=== PATIENT | female | born 2000 | race Two or more races ===

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

== ENCOUNTER 2019-02-03 16:46 | Emergency (ER) | payer SELFPAY ==
[~2019-02-03] VITALS: Ht 160 cm; Wt 83.0 kg
[2019-02-03 17:07] VITALS: BP 109/73
[2019-02-03 17:52] LABS: Basophils # (auto) 0.1 uL; Eosinophils # (auto) 0.3 uL; Eosinophils % (auto) 2.5 % (0.0-7.0); Hemoglobin 12.2 g/dL (12.2-16.2); Lymphocytes # (auto) 2.6 uL; Monocytes # (auto) 0.9 uL; Nucleated Red Blood Cells % 0.1 %
[2019-02-03 17:55] LABS: Basophils % (auto) 0.9 % (0.0-2.0); Hematocrit 38.1 % (36.0-46.0); Lymphocytes % (auto) 22.7 % (10.0-50.0); Mean Corpuscular Hemoglobin 21.8 pg (28.0-32.0); Mean Corpuscular Hgb Conc. 31.9 g/dL (32.0-36.0); Mean Corpuscular Volume 68.3 fL (80.0-100.0); Neutrophils # (auto) 7.4 uL; Neutrophils % (auto) 65.9 % (37.0-80.0); Platelet Count (auto) 503 10^3/uL (140-450); Red Blood Cells 5.58 10^6/uL (4.0-5.20); White Blood Cell 11.2 10^3/uL (4.4-10.8)
[2019-02-03 18:00] LABS: Red Cell Distribution Width 21.2 % (11.8-14.3)
[2019-02-03 18:46] LABS: Albumin 3.5 g/dL (3.4-5.0); Calcium 9.2 mg/dL (8.5-10.1); Potassium 3.9 mmol/L (3.5-5.1)
[2019-02-03 18:46] LABS: Urine Bacteria NONE SEEN /hpf (None Seen); Urine Blood 2+ /uL (Negative); Urine Mucus FEW (None Seen); Urine WBC 5 /hpf (0 - 5)
[2019-02-03 18:49] LABS: BUN/Creatinine Ratio 17.6; Bilirubin, Total 0.2 mg/dL (0.2-1.0); Total Protein 7.6 g/dL (6.4-8.2)
== END 2019-02-04 01:11 | disposition left against medical advice (07) ==
LOC: ER 16:54
DX: R10.9 Unspecified abdominal pain (principal); R11.2 Nausea with vomiting, unspecified; Z53.21 Procedure and treatment not carried out due to patient leaving prior to being seen by health care provider
CPT/HCPCS: 36415; 74176; 80053; 81001; 81025; 82150; 83690; 85025

== ENCOUNTER 2019-09-26 07:44 | Emergency (ER) | payer SELFPAY ==
[~2019-09-26] VITALS: Ht 157.5 cm; Wt 81.6 kg
[2019-09-26 08:14] LABS: Basophils # (auto) 0.1 uL; Eosinophils # (auto) 0.1 uL; Hemoglobin 12.1 g/dL (12.2-16.2); Monocytes # (auto) 0.6 uL
[2019-09-26 08:16] LABS: Basophils % (auto) 1.3 % (0.0-2.0); Eosinophils % (auto) 1.3 % (0.0-7.0); Hematocrit 38.5 % (36.0-46.0); Lymphocytes # (auto) 1.3 uL; Mean Corpuscular Hemoglobin 21.3 pg (28.0-32.0); Mean Corpuscular Hgb Conc. 31.3 g/dL (32.0-36.0); Monocytes % (auto) 8.3 % (0.0-12.0); Neutrophils # (auto) 5.4 uL; Neutrophils % (auto) 72.1 % (37.0-80.0); Platelet Count (auto) 462 10^3/uL (140-450); Red Blood Cells 5.66 10^6/uL (4.0-5.20); White Blood Cell 7.5 10^3/uL (4.4-10.8)
[2019-09-26 08:17] LABS: Urine Bacteria NONE SEEN /hpf (None Seen); Urine Blood 1+ /uL (Negative); Urine Mucus FEW (None Seen); Urine Specific Gravity 1.027 (1.001-1.035); Urine WBC 22 /hpf (0 - 5)
[2019-09-26 08:20] LABS: Red Cell Distribution Width 20.4 % (11.8-14.3)
[2019-09-26 08:32] LABS: Albumin 3.7 g/dL (3.4-5.0); Calcium 8.8 mg/dL (8.5-10.1); Potassium 3.6 mmol/L (3.5-5.1)
[2019-09-26 08:35] LABS: BUN/Creatinine Ratio 16.9; Bilirubin, Total 0.3 mg/dL (0.2-1.0); Total Protein 7.7 g/dL (6.4-8.2)
[2019-09-26] MEDS ORDERED: SODIUM CHLORIDE 0.9% 1,000 ML IV ONE ×2 (08:36)
[2019-09-26] MEDS ORDERED: KETOROLAC TROMETH 30 MG/ML 1ML VIAL IV ONE (08:45)
[2019-09-26] MEDS ORDERED: IOHEXOL 300 MG/ML 100ML BOTTLE IJ ONE (09:14)
[2019-09-26 10:00] VITALS: BP 101/52
== END 2019-09-26 11:49 | disposition home or self-care (01) ==
LOC: EDBD 07:44 → ER 07:44
DX: N39.0 Urinary tract infection, site not specified (principal); N20.0 Calculus of kidney; R11.2 Nausea with vomiting, unspecified
CPT/HCPCS: 36415; 74177; 80053; 81001; 84702; 85025; 96361; 96374; 99284; J1885; J7030; Q9967

== ENCOUNTER 2025-10-25 10:01 | Emergency (ER) | payer MEDICAID ==
[~2025-10-25] VITALS: Ht 160 cm; Wt 99.5 kg
--- NOTE | 2025-10-25 10:43 | ED.PDOC ---
GI ASSESSMENT HPI Comments 25y F who presents to the ED for chief complaint of abdominal pain. Pt states she has been having R sided abdominal pain since yesterday. Pt states she had ordered pizza with her kids last night. Pt states at 0100 this AM, she woke up and went to restroom and has been having intermittent diarrhea episodes with associated nausea, vomiting and chills. Pt came to the ED, due to persistence of her pain and symptoms. Pt denies sick contact of children. Pt otherwise denies any other symptoms. Chief Complaint: Abdominal Pain Time Seen by MD: 10:42 Primary Care Provider: MJK Reviewed Notes: Medications, Allergies Allergies: Coded Allergies: NO KNOWN ALLERGIES (Unverified , 08/07/14) Information Source: Patient Mode of Arrival: Wheelchair Brought in by: self Past Medical History PAST MEDICAL HISTORY: Denies Surgical History: Denies all surgeries NC MANAGER History: No Pertinent NC MANAGER History Family History Family History: Reviewed,noncontributory to illness Social History Smoker: Non-Smoker Alcohol: Denies ETOH Use Drugs: Denies Drug Use Lives In: Home Constitutional: denies: chills, diaphoresis, fatigue, fever, malaise, sweats, weakness, others EENTM: denies: blurred vision, double vision, ear bleeding, ear discharge, ear drainage, ear pain, ear ringing, eye pain, eye redness, hearing loss, mouth pain, mouth swelling, nasal discharge, nose bleeding, nose congestion, nose pain, photophobia, tearing, throat pain, throat swelling, voice changes, others Respiratory: denies: cough, hemoptysis, orthopnea, SOB at rest, shortness of breath, SOB with excertion, stridor, wheezing, others Cardiovascular: denies: chest pain, dizzy spells, diaphoresis, Dyspnea on exertion, edema, irregular heart beat, left arm pain, lightheadedness, palpitations, PND, syncope, others Gastrointestinal: reports: abdominal pain, diarrhea, nausea, vomiting; denies: abdomen distended, blood streaked bowels, constipated, dysphagia, difficulty swallowing, hematemesis, melena, poor appetite, poor fluid intake, rectal bleeding, rectal pain, others Genitourinary: denies: abnormal vagina bleeding, burning, dyspareunia, dysuria, flank pain, frequency, hematuria, incontinence, pain, , vagina discharge, urgency, others Neurological: denies: dizziness, fainting, headache, left sided numbness, left sided weakness, numbness, paresthesia, pre-existing deficit, right sided numbness, right sided weakness, seizure, speech problems, tingling, tremors, weakness, others Musculoskeletal: denies: back pain, gout, joint pain, joint swelling, muscle pain, muscle stiffness, neck pain, others Integumetry: denies: bruises, change in color, change in hair/nails, dryness, laceration, lesions, lumps, rash, wounds, others Allergic/Immunocompromised: denies: Difficulty Healing, Frequent Infections, Hives, Itching, others Hematologic/Lymphatic: denies: anemia, blood clots, easy bleeding, easy bruising, swollen glands, others Endocrine: denies: excessive hunger, excessive sweating, excessive thirst, excessive urination, flushing, intolerance to cold, intolerance to heat, unexplained weight gain, unexplained weight loss, others Psychiatric: denies: anxiety, bipolar disorder, depression, hopeless, panic disorder, schizophrenia, sleepless, suicidal, others All Other Systems: Reviewed and Negative Was a procedure done? Was a procedure done?: No GI differential Dx Differential Diagnosis: Appendicitis, Constipation, Gastritis/PUD, Gastroenteritis, Pancreatitis, UTI, Dehydration, Food Poisoning, Stress Ulcer, Kidney Stone Other Differential Diagnosis colitis, X-Ray, Labs, Meds, VS Vital Signs Date Time Temp Pulse Resp B/P (MAP) Pulse Ox O2 Delivery O2 Flow Rate FiO2 10/25/25 11:35 87 18 124/68 10/25/25 10:59 121 24 124/62 10/25/25 10:03 97.5 119 18 142/62 98 97.5 Lab Test 10/25/25 11:28 10/25/25 10:56 Range/Units Urine Color Yellow Yellow Urine Clarity Clear Clear Urine pH 5.0 5.0-9.0 Urine Specific [place] 1.028 1.001-1.035 Urine Protein Negative Negative Urine Ketones Negative Negative Urine Blood Negative Negative /uL Urine Nitrite Negative Negative Urine Bilirubin Negative Negative Urine Urobilinogen Normal Negative mg/dL Urine Leukocyte Esterase Trace Negative /uL Urine RBC 1 0 - 4 /hpf Urine Microscopic WBC 3 0-5 /HPF Urine Squamous Epithelial Cells Few <5 /hpf Urine Bacteria Few H None Seen /hpf Urine Mucus Few None Seen Urine Glucose Normal Normal mg/dL Urine Test Negative Negative White Blood Count 13.0 H 4.4-10.8 10^3/uL Red Blood Count 6.15 H 4.0-5.20 10^6/uL Hemoglobin 13.1 12.2-16.2 g/dL Hematocrit 41.8 36.0-46.0 % Mean Corpuscular Volume 67.9 L 80.0-100.0 fL Mean Corpuscular Hemoglobin 21.3 L 28.0-32.0 pg Mean Corpuscular Hemoglobin Concent 31.4 L 32.0-36.0 g/dL Red Cell Distribution Width 18.6 H 11.8-14.3 % Platelet Count 408 140-450 10^3/uL Mean Platelet Volume 7.8 6.9-10.8 fL Neutrophils (%) (Auto) 91.9 H 37.0-80.0 % Lymphocytes (%) (Auto) 4.1 L 10.0-50.0 % Monocytes (%) (Auto) 2.8 0.0-12.0 % Eosinophils (%) (Auto) 1.0 0.0-7.0 % Basophils (%) (Auto) 0.2 0.0-2.0 % Neutrophils # (Auto) 11.9 H 1.6-8.6 10 ^3/uL Lymphocytes # (Auto) 0.5 0.4-5.4 10 ^3/uL Monocytes # (Auto) 0.4 0-1.3 10 ^3/uL Eosinophils # (Auto) 0.1 0-0.8 10 ^3/uL Basophils # (Auto) 0 0-0.2 10 ^3/uL Nucleated Red Blood Cells 0.0 % Sodium Level 138 136-145 mmol/L Potassium Level 4.0 3.5-5.1 mmol/L Chloride Level 105 98-107 mmol/L Carbon Dioxide Level 20 20-31 mmol/L Anion Gap 13 5-15 Blood Urea Nitrogen 16 9-23 mg/dL Creatinine 0.56 0.550-1.02 mg/dL Glomerular Filtration Rate Calc 129 >90 mL/min BUN/Creatinine Ratio 28.6 H 10.0-20.0 Serum Glucose 91 74-106 mg/dL Calcium Level 9.5 8.7-10.4 mg/dL Total Bilirubin 0.6 0.2-1.0 mg/dL Aspartate Amino Transferase (AST) 19 13-40 U/L Alanine Aminotransferase (ALT) 67 H 7-40 U/L Alkaline Phosphatase 160 H 46-116 U/L Total Protein 8.6 H 5.7-8.2 g/dL Albumin 5.0 H 3.2-4.8 g/dL Lipase 31 12-53 U/L Current Medications Medications (Trade) Dose Ordered Sig/Stephani Route Start Time Stop Time Status Last Admin Sodium Chloride 1,000 ml @ 1,000 mls/hr Q1H ONCE IV 10/25/25 10:45 10/25/25 11:44 DC 10/25/25 10:56 Ondansetron HCl (Zofran) 4 mg ONCE ONCE IV 10/25/25 10:45 10/25/25 10:52 DC 10/25/25 11:05 Morphine Sulfate 4 mg ONCE ONCE IV 10/25/25 10:45 10/25/25 10:52 DC 10/25/25 10:59 Ondansetron HCl (Zofran) 4 mg ONCE ONCE IV 10/25/25 12:45 10/25/25 13:27 DC 10/25/25 13:44 [place] [id number] Ph: [phone] DIAGNOSTIC IMAGING Diagnostic Imaging Report : [id number] Signed PATIENT: BELGICA FONTANAACCT: [id number] UNIT: [id number] : 2000 LOC: ER ROOM / BED: / AGE / SEX: 25 / F ADM STATUS: REG ER SERVICE 1259 ORDERING PHYSICIAN: TWILA SCHREIBER WRITING C[employer] DIRECTOR PROCEDURE(s): ABPL - CT AB PEL WO CON-NO ORAL OR IV REASON: AB PAIN ORDER NUMBER(s): [id number], ACCESSION NUMBER(s): [id number] CLINICAL HISTORY: AB PAIN TECHNIQUE: CT of the abdomen and pelvis was performed without IV contrast. This exam was performed according to our departmental dose optimization program. Up-to-date CT equipment and radiation dose reduction techniques are utilized as appropriate. CTDI 22 DLP 1164 COMPARISON: None FINDINGS: Abdomen/Pelvis: The spleen, pancreas, adrenal glands, right kidney, gallbladder, uterus, and bladder are grossly unremarkable. There is borderline hepatic steatosis. There is a 2 mm nonobstructing left renal calculus. The abdominal aorta is normal in course and caliber. There are no significant atherosclerotic calcifications. There is no free intraperitoneal air or fluid. There is no enlarged abdominal pelvic lymph node. There is no bowel wall thickening or dilatation. The appendix is normal. There is a tiny fat containing umbilical hernia. There is a moderate amount of fluid within the proximal colon. Other: The imaged lower thorax is unremarkable. No acute osseous abnormality is evident. Impression: No acute noncontrast CT abnormality of the abdomen/pelvis. Borderline hepatic steatosis. 2 mm nonobstructing left renal calculus. Moderate amount of fluid within the proximal colon, compatible with impending diarrhea. ATED BY: RAMOS OTERO MD DICTATED DATE/TIME: 10/25/251450 SIGNED BY: RAMOS OTERO MD SIGNED DATE/TIME: 10/25/251450 CC: X-Ray, Labs, Meds, VS Comment Patient arrives alert and oriented, ABC's intact, afebrile, vital signs stable, saturating well in room air Peripheral IV insertion+ labs were ordered. CBC was ordered to exclude anemia, blood loss, or infection. CMP was ordered to exclude electrolyte abnormalities, renal failure, dehydration, hyperglycemia and/or liver enzyme abnormalities. Urinalysis was ordered to rule out UTI or hematuria. urine test, Diagnostic imaging ordered by me and results interpreted by radiology : Labs in the ED showed (pertinent+ and then pertinent-) Patient was given:IV fluids, zofran, morphine_. Tolerated medications with no adverse reaction. Additional MDM Review of External, Non-ED records: External records reviewed. Discussion with independent historian (EMS, family) history obtained from the patient/parents (if applicable) at bedside Chronic conditions affecting care: None Social determinants of health affecting care: None Consideration of admission (observation or admission): I considered escalation of care to admission for this patient, however given the reassuring workup, the patient is safe for outpatient management. Discussion with the Radiology: No Tests considered but not performed: Prescription medication considered but not given: 12 lead EKG interpretation: Time of 1ST Reevaluation: 11:15 Reevaluation 1ST: Unchanged Patient Education/Counseling: Diagnosis, Treatment Family Education/Counseling: No Family Present SEPSIS Sepsis Screen Date sepsis recognized/suspect: Oct 25, 2025 Time Sepsis recognized/suspect: 1008 Recent Procedure: No On Antibiotic Therapy: No Respiratory Rate >20: No Heart Rate >90: Yes Temp<36 C (96.8 F) or >38.3 C: No SBP <90 or MAP <65 mmHG: No New Acute Mental Status Change: No Is the patient on CPAP, BIPAP,: No Physician Orders Peripheral Saline Lock (10/25/25 10:37) Ct Ab Pel Wo Con-No Oral Or Iv (10/25/25 12:59) Vital Signs Date Time Temp Pulse Resp B/P (MAP) Pulse Ox O2 Delivery O2 Flow Rate FiO2 10/25/25 11:35 87 18 124/68 10/25/25 10:59 121 24 124/62 10/25/25 10:03 97.5 119 18 142/62 98 97.5 Laboratory Tests Test 10/25/25 10:56 White Blood Count 13.0 10^3/uL (4.4-10.8) H Medications Medications Dose Ordered Sig/Stephani Route Start Time Stop Time Status Last Admin Dose Admin Morphine Sulfate 4 mg ONCE ONCE IV 10/25/25 10:45 10/25/25 10:52 DC 10/25/25 10:59 Ondansetron HCl 4 mg ONCE ONCE IV 10/25/25 10:45 10/25/25 10:52 DC 10/25/25 11:05 Ondansetron HCl 4 mg ONCE ONCE IV 10/25/25 12:45 10/25/25 13:27 DC 10/25/25 13:44 Sodium Chloride 1,000 ml @ 1,000 mls/hr Q1H ONCE IV 10/25/25 10:45 10/25/25 11:44 DC 10/25/25 10:56 Departure 1 Departure Impression: Primary Impression: Acute gastroenteritis Disposition: 01 HOME / SELF CARE / HOMELESS Condition: Stable Discharged With: Self Critical Care Note Critical Care Time?: No Stability Stability form required: No Heart Score Heart Score: Heart Score Response (Comments) Value History N/A 0 EKG N/A 0 Age N/A 0 Risk Factors N/A 0 Troponin N/A 0 Total 0 I personally scribed for TWILA SCHREIBER NP ([email or web address]) on 10/25/25 at 10:43. Electronically submitted by Flaco Toribio ([email or web address] I personally scribed for TWILA SCHREIBER NP ([email or web address]) on 10/25/25 at 10:46. Electronically submitted by Flaco Toribio ([facility] I personally scribed for TWILA SCHREIBER NP ([email or web address]) on 10/25/25 at 15:04. Electronically submitted by Flaco Torbiio ([email or web address]). TWILA SCHREIBER NP Oct 25, 2025 10:43
[2025-10-25] MEDS: SODIUM CHLORIDE 0.9% 1,000 ML IV ONE (10:56)
[2025-10-25] MEDS: MORPHINE SULFATE 4 MG/ML SYR/VIAL IV ONE (10:59)
[2025-10-25] MEDS: ONDANSETRON HCL 4 MG/2 ML VIAL IV ONE ×2 (11:05→13:44)
[2025-10-25 11:41] LABS: Hematocrit 41.8 % (36.0-46.0); Hemoglobin 13.1 g/dL (12.2-16.2); Mean Corpuscular Hemoglobin 21.3 pg (28.0-32.0); Mean Corpuscular Volume 67.9 fL (80.0-100.0); Nucleated Red Blood Cells % 0.0 %
[2025-10-25 11:50] LABS: Anion Gap 13 (5-15); Calcium 9.5 mg/dL (8.7-10.4); Carbon Dioxide 20 mmol/L (20-31); Chloride 105 mmol/L (98-107); Glucose 91 mg/dL (74-106); Lipase 31 U/L (12-53); Potassium 4.0 mmol/L (3.5-5.1); Sodium 138 mmol/L (136-145)
[2025-10-25 11:51] LABS: BUN/Creatinine Ratio 28.6 (10.0-20.0); Bilirubin, Total 0.6 mg/dL (0.2-1.0); Blood Urea Nitrogen 16 mg/dL (9-23)
[2025-10-25 11:58] LABS: Alanine Aminotransferase 67 U/L (7-40); Albumin 5.0 g/dL (3.2-4.8); Alkaline Phosphatase 160 U/L (46-116); Total Protein 8.6 g/dL (5.7-8.2)
[2025-10-25 12:51] LABS: Urine Protein, UAD Negative (Negative)
--- NOTE | 2025-10-25 14:53 | DVH ---
CLINICAL HISTORY: AB PAIN TECHNIQUE: CT of the abdomen and pelvis was performed without IV contrast. This exam was performed according to our departmental dose optimization program. Up-to-date CT equipment and radiation dose reduction techniques are utilized as appropriate. CTDI 22 DLP 1164 COMPARISON: None FINDINGS: Abdomen/Pelvis: The spleen, pancreas, adrenal glands, right kidney, gallbladder, uterus, and bladder are grossly unremarkable. There is borderline hepatic steatosis. There is a 2 mm nonobstructing left renal calculus. The abdominal aorta is normal in course and caliber. There are no significant atherosclerotic calcifications. There is no free intraperitoneal air or fluid. There is no enlarged abdominal pelvic lymph node. There is no bowel wall thickening or dilatation. The appendix is normal. There is a tiny fat containing umbilical hernia. There is a moderate amount of fluid within the proximal colon. Other: The imaged lower thorax is unremarkable. No acute osseous abnormality is evident. Impression: No acute noncontrast CT abnormality of the abdomen/pelvis. Borderline hepatic steatosis. 2 mm nonobstructing left renal calculus. Moderate amount of fluid within the proximal colon, compatible with impending diarrhea.
[2025-10-25] MEDS ORDERED: LOPE1TAB9 PO (15:03)
[2025-10-25 15:36] VITALS: BP 136/78; PULSE 78; RESP 16; TEMP 98.7; O2SAT 100
== END 2025-10-25 15:37 | disposition home or self-care (01) ==
LOC: ER 10:01
DX: K52.9 Noninfective gastroenteritis and colitis, unspecified (principal)
CPT/HCPCS: 36415; 74176; 80053; 81001; 81025; 83690; 85025; 96361; 96374; 96375; 96376; 99285; J2270; J2405; J7030